=== PATIENT | male | born 1940 | race Caucasian/White ===

== ENCOUNTER 2018-10-19 18:18 | Emergency (ER) | payer OTHER ==
--- NOTE | 2018-10-19 18:54 | RAD REPORT ---
EXAM DESCRIPTION: RAD - Chest Single View - 10/19/2018 6:49 pm CLINICAL HISTORY: COUGH Chest pain. COMPARISON: No comparisons FINDINGS: Portable technique limits examination quality. Linear subsegmental atelectasis is present left lung base laterally. The lungs are otherwise clear. T he heart is normal in size. No displaced fractures.
[2018-10-19 19:30] LABS: ALT/SGPT 21 U/L (12-78); AST/SGOT 17 U/L (15-37); Albumin 2.7 g/dL (3.4-5.0); Alkaline Phosphatase 37 U/L (45-117); BUN Blood Urea Nitrogen 15 mg/dL (7-18); Bicarbonate 31 mmol/L (21-32); Bilirubin Direct 0.1 mg/dL (0-0.2); Bilirubin Total 0.4 mg/dL (0.2-1.0); Glucose Level 95 mg/dL (74-106); Magnesium 2.3 mg/dL (1.8-2.4); NT PRO-BNP 140 pg/mL (<450); Potassium 3.3 mmol/L (3.5-5.1); Protein, Total 5.6 g/dL (6.4-8.2); Sodium Level 142 mmol/L (136-145); Troponin (Emerg Dept Use Only) < 0.02 ng/mL (0.0-0.045)
--- NOTE | 2018-10-19 19:37 | EDPHYS ---
Physician Documentation [facility] Name: Alex Moeller Age: 78 yrs Sex: Male : 1940 Arrival Date: 10/19/2018 Time: 18:24 Bed 6 Private MD: ED Physician Abel Mac HPI: 10/19 19:28 This 78 yrs old Male presents to ER via EMS with complaints of Low Blood gs Sugar. 19:28 Onset: The symptoms/episode began/occurred acutely, today. Associated signs and gs symptoms: Pertinent positives: diarrhea, Pertinent negatives: anorexia, constipation. Current symptoms: In the emergency department the patient's symptoms have resolved. The patient has experienced similar episodes in the past, a few times. The patient has not recently seen a physician. Historical: - Allergies: 18:29 No Known Allergies; sg - Home Meds: 18:29 Metformin Oral [Active]; sg - PMHx: 18:29 Diabetes - NIDDM; sg - Immunization history:: Adult Immunizations up to date. - Social history:: Smoking status: Patient/guardian denies using tobacco. - Ebola Screening: : Patient negative for fever greater than or equal to 101.5 degrees Fahrenheit, and additional compatible Ebola Virus Disease symptoms Patient denies exposure to infectious person Patient denies travel to an Ebola-affected area in the 21 days before illness onset No symptoms or risks identified at this time. ROS: 19:28 All other systems are negative. gs Exam: 19:28 Head/Face: Normocephalic, atraumatic. Eyes: Pupils equal round and reactive to light, gs extra-ocular motions intact. Lids and lashes normal. Conjunctiva and sclera are non-icteric and not injected. Cornea within normal limits. Periorbital areas with no swelling, redness, or edema. ENT: Nares patent. No nasal discharge, no septal abnormalities noted. Tympanic membranes are normal and external auditory canals are clear. Oropharynx with no redness, swelling, or masses, exudates, or evidence of obstruction, uvula midline. Mucous membranes moist. Neck: Trachea midline, no thyromegaly or masses palpated, and no cervical lymphadenopathy. Supple, full range of motion without nuchal rigidity, or vertebral point tenderness. No Meningismus. Chest/axilla: Normal chest wall appearance and motion. Nontender with no deformity. No lesions are appreciated. Cardiovascular: Regular rate and rhythm with a normal S1 and S2. No gallops, murmurs, or rubs. Normal PMI, no JVD. No pulse deficits. Respiratory: Lungs have equal breath sounds bilaterally, clear to auscultation and percussion. No rales, rhonchi or wheezes noted. No increased work of breathing, no retractions or nasal flaring. Abdomen/GI: Soft, non-tender, with normal bowel sounds. No distension or tympany. No guarding or rebound. No evidence of tenderness throughout. Back: No spinal tenderness. No costovertebral tenderness. Full range of motion. Skin: Warm, dry with normal turgor. Normal color with no rashes, no lesions, and no evidence of cellulitis. MS/ Extremity: Pulses equal, no cyanosis. Neurovascular intact. Full, normal range of motion. Neuro: Awake and alert, GCS 15, oriented to person, place, time, and situation. Cranial nerves II-XII grossly intact. Motor strength 5/5 in all extremities. Sensory grossly intact. Cerebellar exam normal. Normal gait. 19:28 Constitutional: The patient appears alert, awake. 19:28 Abdomen/GI: Hernia: noted in the umbilical area, incarceration, is not appreciated. Vital Signs: 18:26 BP 139 / 62; Pulse 69; Resp 16; Temp 97.7; Pulse Ox 100% ; Weight 115.67 kg; Pain 0/10; sg 19:00 BP 147 / 79; Pulse 67; Resp 12; Pulse Ox 98% on R/A; lp1 20:00 BP 133 / 63; Pulse 70; Resp 13; Pulse Ox 98% on R/A; Pain 0/10; lp1 MDM: 19:09 Patient medically screened. gs 19:35 Differential diagnosis: hypoglycemic episode. Data reviewed: vital signs, nurses notes, gs lab test result(s), EKG. Counseling: I had a detailed discussion with the patient and/or guardian regarding: the historical points, exam findings, and any diagnostic results supporting the discharge/admit diagnosis, lab results, the need for outpatient follow up. Response to treatment: the patient's symptoms have resolved after treatment, and as a result, I will discharge patient. 10/19 18:25 Order name: Glucose, Ancillary Testing; Complete Time: 19:20 EDMS 10/19 18:34 Order name: Basic Metabolic Panel; Complete Time: 19:38 [facility] 10/19 18:34 Order name: CBC with Diff 10/19 18:34 Order name: LFT's; Complete Time: 19:38 [facility] 10/19 18:34 Order name: Magnesium; Complete Time: 19:38 [facility] 10/19 18:34 Order name: NT PRO-BNP; Complete Time: 19:38 [facility] 10/19 18:26 Order name: Diet Regular; Complete Time: 18:26 10/19 18:34 Order name: PT-INR [facility] 10/19 18:34 Order name: Troponin (emerg Dept Use Only); Complete Time: 19:38 [facility] 10/19 18:34 Order name: XRAY Chest (1 view); Complete Time: 19:20 [facility] 10/19 18:34 Order name: Cardiac monitoring; Complete Time: 18:45 [facility] 10/19 18:34 Order name: IV Saline Lock; Complete Time: 18:45 [facility] 10/19 18:34 Order name: Labs collected and sent; Complete Time: 18:45 [facility] 10/19 18:34 Order name: O2 Per Protocol; Complete Time: 18:45 [facility] 10/19 18:34 Order name: O2 Sat Monitoring; Complete Time: 18:45 [facility] Administered Medications: No medications were administered Point of Care Testing: Blood Glucose: 18:26 Blood Glucose: 108 mg/dL; sg 20:15 Blood Glucose: 83 mg/dL; ak1 20:19 Blood Glucose: 90 mg/dL; ak1 Ranges: Critical Glucose Levels:Adult <50 mg/dl or >400 mg/dl <40 mg/dl or >180 mg/dl Disposition: 10/19/18 19:37 Discharged to Home. Impression: Hypoglycemia, unspecified. - Condition is Stable. - Discharge Instructions: Hypoglycemia, Blood Glucose Monitoring, Adult. - Medication Reconciliation Form, Thank You Letter, Antibiotic Education, Prescription Opioid Use form. - Follow up: Private Physician; When: 2 - 3 days; Reason: Re-evaluation by your physician. Signatures: Dispatcher [employer] Nahun Vaughn RN RN sg Anderson, Corey, MD MD cha Krenek, Amber, RN RN ak1 Abel Mac MD MD Corrections: (The following items were deleted from the chart) 20:38 18:34 EKG - Nurse/Tech ordered. [email or web address] ak1 20:40 19:37 10/19/2018 19:37 Discharged to Home. Impression: Hypoglycemia, unspecified. ak1 Condition is Stable. Forms are Medication Reconciliation Form, Thank You Letter, Antibiotic Education, Prescription Opioid Use. Follow up: Private Physician; When: 2 - 3 days; Reason: Re-evaluation by your physician. gs
--- NOTE | 2018-10-19 19:37 | ER ---
Nurse's Notes [facility] Name: Alex Moeller Age: 78 yrs Sex: Male : 1940 Arrival Date: 10/19/2018 Time: 18:24 Bed 6 Private MD: Diagnosis: Hypoglycemia, unspecified Presentation: 10/19 18:29 Presenting complaint: EMS states: called for pt having left sided weakness and aphasia, sg FSBG of 55, administered 1/2 amp of D50 administered. Transition of care: patient was not received from another setting of care. Onset of symptoms was October 19, 2018. Risk Assessment: Do you want to hurt yourself or someone else? Patient reports no desire to harm self or others. Initial Sepsis Screen: Does the patient meet any 2 criteria? No. Patient's initial sepsis screen is negative. Does the patient have a suspected source of infection? No. Patient's initial sepsis screen is negative. Care prior to arrival: IV initiated. 18 GA, in the left in the right antecubital area, Glucose check: 55. Care prior to arrival: Medication(s) given: D50, 1/2 amp, Glucose check: 148. 18:29 Method Of Arrival: EMS: [facility] sg 18:29 Acuity: JEANETTE 3 sg Historical: - Allergies: 18:29 No Known Allergies; sg - Home Meds: 18:29 Metformin Oral [Active]; sg - PMHx: 18:29 Diabetes - NIDDM; sg - Immunization history:: Adult Immunizations up to date. - Social history:: Smoking status: Patient/guardian denies using tobacco. - Ebola Screening: : Patient negative for fever greater than or equal to 101.5 degrees Fahrenheit, and additional compatible Ebola Virus Disease symptoms Patient denies exposure to infectious person Patient denies travel to an Ebola-affected area in the 21 days before illness onset No symptoms or risks identified at this time. Screenin:30 Abuse screen: Denies threats or abuse. Denies injuries from another. Nutritional sg screening: No deficits noted. Tuberculosis screening: No symptoms or risk factors identified. Never had TB. Fall Risk None identified. Assessment: 18:35 General: Appears in no apparent distress. well groomed, well developed, well nourished, sg Behavior is calm, cooperative, appropriate for age. Pain: Denies pain. Neuro: Level of Consciousness is awake, alert, obeys commands, Oriented to person, place, time, situation, [employer] Coating Technician are equal bilaterally Moves all extremities. Full function Gait is steady, Speech is normal, Facial symmetry appears normal. Cardiovascular: Capillary refill is brisk in bilateral fingers Patient's skin is warm and dry. Respiratory: Airway is patent Respiratory effort is even, unlabored, Respiratory pattern is regular, symmetrical. GI: Abdomen is round non-distended. : No signs and/or symptoms were reported regarding the genitourinary system. EENT: No signs and/or symptoms were reported regarding the EENT system. Derm: Skin is intact, is healthy with good turgor, Skin is clammy, Skin is pale, Skin temperature is cool. Musculoskeletal: Circulation, motion, and sensation intact. Range of motion: intact in all extremities, Swelling absent. 19:21 Reassessment: Patient is alert, oriented x 3, equal unlabored respirations, skin lp1 warm/dry/pink. Patient given sandwich and orange juice at this time Patient denies pain at this time. Patient states feeling better. Patient states symptoms have improved. Vital Signs: 18:26 BP 139 / 62; Pulse 69; Resp 16; Temp 97.7; Pulse Ox 100% ; Weight 115.67 kg; Pain 0/10; sg 19:00 BP 147 / 79; Pulse 67; Resp 12; Pulse Ox 98% on R/A; lp1 20:00 BP 133 / 63; Pulse 70; Resp 13; Pulse Ox 98% on R/A; Pain 0/10; lp1 ED Course: 18:24 Patient arrived in ED. sg 18:27 Arm band placed on. sg 18:30 Initial lab(s) drawn, by me, sent to lab. Maintain EMS IV. Dressing intact. Site clean sg \T\ dry. Gauge \T\ site: 18 G Bilateral AC. 18:41 Triage completed. sg 18:45 Nahun Scott, RN is Primary Nurse. sg 18:49 XRAY Chest (1 view) In Process Unspecified. EDMS 19:08 Abel Mac MD is Attending Physician. gs 19:15 Report given to Maryam RN and Emma RN. sv 19:21 Patient has correct armband on for positive identification. Bed in low position. Call lp1 light in reach. Side rails up X2. residential monitor on. Pulse ox on. NIBP on. 19:21 No provider procedures requiring assistance completed. lp1 20:40 IV discontinued, intact, bleeding controlled, No redness/swelling at site. Pressure ak1 dressing applied. Administered Medications: No medications were administered Point of Care Testing: Blood Glucose: 18:26 Blood Glucose: 108 mg/dL; sg 20:15 Blood Glucose: 83 mg/dL; ak1 20:19 Blood Glucose: 90 mg/dL; ak1 Ranges: Outcome: 19:37 Discharge ordered by . gs 20:39 Discharged to home ambulatory, with family. ak1 20:39 Condition: good 20:39 Discharge instructions given to patient, family, Instructed on discharge instructions, follow up and referral plans. Demonstrated understanding of instructions, follow-up care, pt and family verbalized instructions to return to ER is FSBG below 100 after eating and prior to bed. 20:40 Patient left the ED. ak1 Signatures: Dispatcher [employer] Davida Recinos RN RN Nahun Scott RN RN Emma Florian RN RN [facility] Maryam Skaggs RN RN ak1 Abel Mac MD MD
[2018-10-19 19:53] LABS: Absolute Lymphocytes (CBC) 0.6 K/uL (0.7-4.9); Absolute Monocytes 0.8 K/uL (0.1-1.3); Absolute Neutrophil 5.7 K/uL (1.8-8.0); Basophils % 0.4 % (0-1.3); Eosinophils % 0.4 % (0-4.4); Hematocrit 35.7 % (39.6-49.0); Lymphocytes % 8.9 % (15.3-44.8); MPV 7.2 fL (7.6-11.3); Monocytes % 10.9 % (3.3-12.3); RBC Red Blood Cell Count 4.04 M/uL (4.33-5.43)
[2018-10-19 20:26] LABS: Protime INR 1.19
== END 2018-10-19 20:40 | disposition home or self-care (01) ==
LOC: ER 18:18
DX: E11.649 Type 2 diabetes mellitus with hypoglycemia without coma (principal)
CPT/HCPCS: 36415; 71045; 80048; 80076; 82962; 83735; 83880; 84484; 85025; 85610; 99284